=== PATIENT | female | born 1975 | race Two or more races ===

== ENCOUNTER 2021-06-04 08:00 | Outpatient (CLI) | payer SELFPAY | END 2021-06-04 23:59 | LOC: LAB.N 08:00 | PROVIDERS: ATTEND Physician Assistant | DX: R09.3 Abnormal sputum (principal); R05.1 Acute cough; Z20.822 Contact with and (suspected) exposure to COVID-19 | CPT/HCPCS: 87275; 87276 ==

== ENCOUNTER 2023-12-23 10:57 | Emergency (ER) | payer OTHER ==
[2023-12-23 11:37] VITALS: BP 105/67; O2SAT 100
--- NOTE | 2023-12-23 12:02 | XRAY Report ---
PROCEDURE: Foot 3+V LT INDICATIONS: Trauma TECHNIQUE: 3 views of the foot were acquired. COMPARISON: None. FINDINGS: Bones: No fractures or dislocations. Well-defined plantar calcaneal enthesophyte is seen. First MTP joint osteoarthritic changes are noted. There is also mild hallux valgus. No suspicious bony lesions. Soft tissues: No tibiotalar joint effusion. Achilles tendon appears normal. IMPRESSION: No acute left foot fracture or dislocation. 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 W ell-defined plantar calcaneal enthesophyte. Reviewed by: David Ivan MD on 12/23/2023 12:01 PM PDT Approved by: David Ivan MD on 12/23/2023 12:01 PM PDT Station ID: [id number]
--- NOTE | 2023-12-23 12:46 | ED Physician Documentation ---
PD HPI LOWER EXT INJURY - Stated complaint Stated Complaint: LT FOOT INJURY - Chief complaint Chief Complaint: Ext Problem - History obtained from History obtained from: Patient - Additional information Additional information: She has been having pain at the insertion of the plantar fascia on the calcaneus for about a year that worsened last night after she fell off a ladder. She is still able to walk and bear weight. No other injuries. PD PAST MEDICAL HISTORY - Past Medical History Past Medical History: No - Past Surgical History Past Surgical History: No - Present Medications Home Medications: Ambulatory Orders Medication Instructions Recorded Confirmed No Known Home Medications 12/23/23 12/23/23 - Allergies Allergies/Adverse Reactions: Allergies Allergy/AdvReac Type Severity Reaction Status Date / Time No Known Drug Allergies Allergy Verified 12/23/23 11:27 - Social History Does the pt smoke?: No Smoking Status: Never smoker Does the pt drink ETOH?: No Does the pt have substance abuse?: No - Immunizations Immunizations are current?: Yes PD ED PE NORMAL - Vitals Vital signs reviewed: Yes - General General: Alert and oriented X 3, No acute distress - Back Back: No CVA TTP, No spinal TTP - Extremities Extremities: Other (There is focal tenderness to the insertion of the left plantar fascia into the calcaneus. No other foot tenderness. No deformity save mild bunion deformity.) - Neuro Neuro: Alert and oriented X 3, Normal speech Results - Vitals Vitals: Vital Signs - 24 hr 12/23/23 11:20 Temperature 36.2 C L Heart Rate 63 Respiratory 16 Rate Blood Pressure 105/67 O2 Saturation 100 Oxygen O2 Source Room air - Rads (name of study) Three-view x-ray left foot with heel spur and bunion Relevant Findings:: Final report received, EMP independent interpretation of test PD Medical Decision Making - ED course ED course: She is exacerbation of chronic pain due to injury. I think she has chronic plantar fasciitis and heel spur, we discussed stretching and follow-up with podiatry. Departure - Departure Disposition: 01 Home, Self Care Clinical Impression: Heel spur, Foot injury Condition: Good Record reviewed to determine appropriate education?: Yes Instructions: ED Heel Spur, ED Plantar Fasciitis Comments: As discussed, there is no evidence of a break in your foot. The area of your pain now is associated with a plantar calcaneal enthesophyte which I think is a sign of kind of chronic inflammation of that area. Do the stretches as I showed you and reasonable to follow-up with the italian tutor at your leisure. In addition on the x-ray you did have mild hallux valgus and first MTP joint arthritis (bunion) Forms: PCP List
== END 2023-12-23 12:52 | disposition home or self-care (01) ==
LOC: ED 10:57
DX: S99.922A Unspecified injury of left foot, initial encounter (principal); W11.XXXA Fall on and from ladder, initial encounter; M77.32 Calcaneal spur, left foot; M72.2 Plantar fascial fibromatosis
CPT/HCPCS: 99283; 99284